=== PATIENT | female | born 1940 | race Caucasian/White ===

== ENCOUNTER 2019-02-24 06:23 | Inpatient (IN) | payer OTHER, BC ==
[2019-02-24] VITALS (18 sets, daily range): BP systolic 112–157; BP diastolic 43–83
[~2019-02-24] VITALS: Ht 175.3 cm; Wt 103.4 kg
[~2019-02-24 06:23] MED LIST: ASMANEX220 MC2 IH; ASPIRIN325 PO; ATACAND32 MG PO; FOLIC ACID1 MG PO; HYDROCODONE-APA1 TA1 PO; KEFLEX500 MG PO; LIPOFEN150 MG PO; OMEGA-31000 M1 PO; PROCARDIA XL90 MG PO; TOPROL XL25 MG PO; ZOFRAN ODT4 MG DISSOLVE; [UNRECOGNIZED DRUG - OTHER] PO
[2019-02-24 07:13] LABS: ABSOLUTE NEUTROPHILS 4.1 thou/uL (1.4-8.2); BASOPHILS 0.3 % (0.0-2.0); EOSINOPHILS 4.9 % (0.0-3.0); HEMATOCRIT 40.6 % (37.0-47.0); HEMOGLOBIN 13.4 gm/dL (12.0-15.0); LYMPHOCYTES 35.4 % (24.0-44.0); MCH 28.4 pg (26.0-34.0); MCHC 33.1 g/dL (28.0-37.0); MCV 85.9 fL (80.0-100.0); MONOCYTES 7.5 % (1.0-8.0); PLATELET COUNT 226 thou/uL (150-400); POLYS 51.9 % (36.0-66.0); RBC 4.72 mil/uL (4.20-5.00)
[2019-02-24] MEDS ORDERED: ELIQUIS5 MG PO (07:16)
[2019-02-24] MEDS ORDERED: TRICOR145 MG PO (07:16)
[2019-02-24 07:19] LABS: CALCIUM 9.7 mg/dL (8.5-10.1); CREATININE 1.7 mg/dL (0.6-1.0); POTASSIUM 4.3 mmol/L (3.5-5.1)
[2019-02-24 07:25] LABS: ALBUMIN 3.9 g/dL (3.4-5.0); TOTAL BILIRUBIN 0.5 mg/dL (<0.1-1.0); TOTAL PROTEIN 7.1 g/dL (6.4-8.2)
[2019-02-24 07:27] LABS: APTT 25.7 Seconds (24.5-32.8); PROTIME 10.8 Seconds (9.3-11.4)
[2019-02-24 16:04] LABS: ABSOLUTE NEUTROPHILS 11.2 thou/uL (1.4-8.2); BASOPHILS 0.3 % (0.0-2.0); EOSINOPHILS 0.1 % (0.0-3.0); HEMATOCRIT 33.3 % (37.0-47.0); LYMPHOCYTES 5.9 % (24.0-44.0); MCH 28.3 pg (26.0-34.0); MCV 85.9 fL (80.0-100.0); MONOCYTES 1.7 % (1.0-8.0); PLATELET COUNT 201 thou/uL (150-400); RBC 3.87 mil/uL (4.20-5.00); RDW 14.1 % (10.5-14.5); WBC 12.1 thou/uL (4.0-11.0)
--- NOTE | 2019-02-24 19:26 | NUR ---
PT ADMITED FROM CARDIAC CATH. ADMISSION HX AND ASSESSMENT COMPLETED. RECEIVED PRN PAIN MED WITH PARTIAL RELIEF. BRUIZES NOTED ON THE RIGHT GROIN INCISION. NO HEMATOMA. NO CARDIAC DISTRESS NOTED. WILL CONTINUE TO MONITOR.
--- NOTE | 2019-02-25 03:27 | NUR ---
ASSUMED PT CARE AT 1900. PT ON BEDREST, POST CATH PROCEDURE. VITAL SIGNS STABLE, ASSESSMENT CHARTED. NO CMPLAINT OF PAIN. PT OFF BEDREST AT ABOUT 2030. MERA CATHETER DISCONTINUED. PT ASSISTED TO THE SIDE OF BED AND TO BEDSIDE COMMODE. PT MILDLY DIZZY AT START. DIZZINESS RESOLVED ON OWN. GROIN SITE CLEAN, DRY AND INTACT. SITE SOFT. NO FURTHER PROGRESSION WITH BRUISING. ICE PACK SEEMD TO RELIEF SORENESS/PAIN. RESTED WELL THROUGH THE NIGHT. PROGRESSING TOWARD PLAN OF CARE. WILL CONTINUE TO MONITOR.
[2019-02-25 04:42] VITALS: BP 112/43
[2019-02-25 05:29] LABS: CALCIUM 8.3 mg/dL (8.5-10.1); CREATININE 2.1 mg/dL (0.6-1.0); POTASSIUM 4.4 mmol/L (3.5-5.1)
[2019-02-25 05:35] LABS: ABSOLUTE NEUTROPHILS 6.5 thou/uL (1.4-8.2); BASOPHILS 0.4 % (0.0-2.0); EOSINOPHILS 0.2 % (0.0-3.0); HEMATOCRIT 27.5 % (37.0-47.0); HEMOGLOBIN 9.1 gm/dL (12.0-15.0); LYMPHOCYTES 18.7 % (24.0-44.0); MCH 28.6 pg (26.0-34.0); MCHC 33.3 g/dL (28.0-37.0); MCV 86.1 fL (80.0-100.0); MONOCYTES 9.2 % (1.0-8.0); PLATELET COUNT 187 thou/uL (150-400); POLYS 71.5 % (36.0-66.0); RBC 3.19 mil/uL (4.20-5.00); WBC 9.1 thou/uL (4.0-11.0)
[2019-02-25 07:45] VITALS: BP 95/46
--- NOTE | 2019-02-25 08:29 | EKG ---
[address] [address] ELECTROCARDIOGRAM REPORT Name: APRYLGEORGETTE EMANUELTH Room #: 207-P [facility]#: [id number] Admission: 02/24/19 Attend Phys: Phillip Carrillo MD Discharge: Date of : 42 Report #: [id number] THIS REPORT FOR: //name// [facility] Test Date: 2019-02-24 Test Time: 07:16:52 Pat Name: GEORGETTE PINK Department: Room: [facility] Gender: F Music Library Assistant: Brook JUARES : 1940 Requested By: Phillip Carrillo Order Number: [id number] MD: Phillip Carrillo Measurements Intervals [place] Rate: 79 P: OR: QRS: 21 QRSD: 95 T: 15 QT: 367 QTc: 421 Interpretive Statements Atrial fibrillation No previous ECG available for comparison Electronically Signed On 02-25-2019 8:29:04 CDT by Phillip Carrillo [email or web address] <ELECTRONICALLY SIGNED> By: Phillip Carrillo MD 02/25/19 0829 0716 5 Phillip Carrillo MD /HAWA
[2019-02-25 11:30] VITALS: BP 109/43
--- NOTE | 2019-02-25 15:13 | NUR ---
PT ALERT AND ORIENTED. HAD LOW BP THIS AM. CARDIOLOGY AWARE. ORDERS NOTED. REPORT HAVING SOME LEG CRAMPS. WARM BLANKET APPLIED. PT REPORT SOME RELIEF. EVALUATED BY PT AND OT. NO HEMATOMA NOTED ON THE RIGHT GROIN. STILL BRUISED. NO CARDIAC OR RESPIRATORY DISTRESS NOTED. WILL CONTINUE TO MONITOR.
[2019-02-25 15:25] VITALS: BP 119/45
--- NOTE | 2019-02-25 17:55 | NUR ---
Case opened to screen for dc planning needs. PT/OT charlene noted and case discussed with the care team. Cm role introduced to pt at bedside. She is a&ox4 and reports that she is very indep and active. She drives and does all of her own house work and yard work. She has a cane, a rolator walker and a std walker if needed at dc. She has 5 steps to enter her home and a stair glide to the basement. She her brother lives out of town but she has friends from [employer] that she relies on if needed. She is anxious to dc home as she has a cat that needs feed/watered. She reports that she has a pcp and regular f/u care. She has not had hh and does not feel she needs it at this time. She reports having issues with balance for many year and that she is used to it. Will ask therapy to revisit with her tomorrow. She is not receptive to a hh referral at this time. She has a friend that can pick her up if dc'd tomorrow.
[2019-02-26 04:02] VITALS: BP 99/40
--- NOTE | 2019-02-26 05:25 | NUR ---
ASSUMED PT CARE AT 1900. PT A/OX4, VITAL SIGNS STABLE, ASSESSMENT CHARTED. BACK PAIN RELIEF ACHIEVED WITH REPOSITIONING. PT SLEPT IN RECLINER THROUGH THE NIGHT. GROIN SITE REMAINED UNCHANGED. PROGRESSING TOWARD PLAN OF CARE. WILL CONTINUE TO MONITOR.
[2019-02-26 05:27] LABS: ALBUMIN 2.7 g/dL (3.4-5.0); CALCIUM 7.6 mg/dL (8.5-10.1); CREATININE 2.9 mg/dL (0.6-1.0); POTASSIUM 4.4 mmol/L (3.5-5.1); TOTAL BILIRUBIN 0.5 mg/dL (<0.1-1.0); TOTAL PROTEIN 4.9 g/dL (6.4-8.2)
[2019-02-26 05:58] LABS: ABSOLUTE NEUTROPHILS 4.9 thou/uL (1.4-8.2); BASOPHILS 0.6 % (0.0-2.0); EOSINOPHILS 2.8 % (0.0-3.0); HEMATOCRIT 23.9 % (37.0-47.0); HEMOGLOBIN 8.1 gm/dL (12.0-15.0); MCHC 33.7 g/dL (28.0-37.0); MONOCYTES 9.3 % (1.0-8.0); PLATELET COUNT 158 thou/uL (150-400); POLYS 56.3 % (36.0-66.0); RBC 2.78 mil/uL (4.20-5.00); RDW 13.9 % (10.5-14.5); WBC 8.7 thou/uL (4.0-11.0)
[2019-02-26 07:20] VITALS: BP 115/46
[2019-02-26 11:35] VITALS: BP 114/45
[2019-02-26 15:50] VITALS: BP 111/43
--- NOTE | 2019-02-26 18:42 | NUR ---
[facility] PT A&O X4. ASSESSMENT CHARTED. FALL PRECAUTIONS IN PLACE. PT DENIES ANY ACUTE GENERALIZED BODY PAIN. PT STATED SHE HAD MILD CHRONIC BACK PAIN. PT REFUSED ANALGESICS. PT'S VITAL SIGNS STABLE. PT ABULATES WITH ASSIST X1. PT IS STEADY WHEN WALKING. PT ADDED SUPPLEMENT TO DIET. ENCOURAGING PT TO DRINK FLUIDS AND EAT. PT RECIEIVED BLADDER SCAN. PT WAS RETAINING FLUID. PT RECIEVED A STRAIGHT CATH. ORDERED FLOMAX FOR TONIGHT. PT'S RESIDUAL ON BLADDER SCAN WAS 429. PT'S OUTPUT IN CATH WAS 175. PT'S IV FLUIDS HAVE BEEN OFF AND ON DUE TO INFLILTRATED IV AND PT GOING TO AND FROM BATHROOM. PT HAS UNMEASURED VOIDS DUE TO HAT MISPLACEMENT. PT REPORTED SHE HAD CHEST PRESSURE. OPERATIONAL COMMUNICATION CHIEF NOTIFIED AND AWAITING ORDERS.
[2019-02-26 21:42] VITALS: BP 97/41
--- NOTE | 2019-02-27 03:28 | NUR ---
ASSUMED PT CARE AT 1900. PT A/OX4, VITAL SIGNS STABLE, SOFT BLOOD PRESSURES, FLUIDS MAINTAINED. ASSESSMENT CHARTED. LOWER BACK PAIN ADEQUATELY MANAGED WITH PAIN MEDICATION. PT SLEPT IN RECLINER FOR MOST OF THE NIGHT.RESTED WELL THROUGH THE NIGHT. PROGRESSING TOWARD PLAN OF CARE. WILL CONTINUE TO MONITOR.
[2019-02-27 05:35] LABS: BASOPHILS 0.6 % (0.0-2.0); EOSINOPHILS 3.4 % (0.0-3.0); HEMATOCRIT 21.7 % (37.0-47.0); HEMOGLOBIN 7.4 gm/dL (12.0-15.0); LYMPHOCYTES 30.5 % (24.0-44.0); MCH 29.1 pg (26.0-34.0); MCHC 33.9 g/dL (28.0-37.0); MCV 85.8 fL (80.0-100.0); MONOCYTES 10.7 % (1.0-8.0); PLATELET COUNT 146 thou/uL (150-400); POLYS 54.8 % (36.0-66.0); RBC 2.53 mil/uL (4.20-5.00); RDW 13.4 % (10.5-14.5); WBC 7.2 thou/uL (4.0-11.0)
[2019-02-27 05:46] LABS: CREATININE 2.2 mg/dL (0.6-1.0); POTASSIUM 4.3 mmol/L (3.5-5.1)
[2019-02-27 06:14] VITALS: BP 104/40
[2019-02-27 08:05] VITALS: BP 112/42
[2019-02-27 12:05] VITALS: BP 111/47
[2019-02-27 16:15] VITALS: BP 101/34
--- NOTE | 2019-02-27 16:33 | NUR ---
ASSUMMED PT CARE AT [facility] 0700. PT A&O X4. ASSESSMENT CHARTED. FALL PRECAUTIONS IN PLACE. VITAL SIGNS STABLE. PT STATED SHE HAS HAD ZERO PAIN. ENCOURAGED PT TO DRINK FLUIDS AND EAT MEALS. PT HAD A BM. PT'S URINARY CATHEDER DC WITH NO COMPLICATIONS. PT HAS VOIDED MULTIPLE TIMES SINCE URINARY CATHEDER REMOVAL. PT DENIES PAIN OR COMPLICATIONS WHEN VOIDING. PT AMMBULATES WITH STANDBY ASSIST FOR IV PUMP BUT IS STEADY. PT'S BP DECREASED. SURGICAL AIDE NOTIFIED. AWAITING ORDERS AND CONTINUING TO MONITOR PT. PT IS ASYMPTOMATIC.
[2019-02-27 20:01] VITALS: BP 105/33
[2019-02-28] VITALS (8 sets, daily range): BP systolic 113–149; BP diastolic 36–61
[2019-02-28 05:22] LABS: ABSOLUTE NEUTROPHILS 2.9 thou/uL (1.4-8.2); BASOPHILS 0.8 % (0.0-2.0); EOSINOPHILS 6.2 % (0.0-3.0); HEMATOCRIT 20.7 % (37.0-47.0); LYMPHOCYTES 30.8 % (24.0-44.0); MCHC 33.7 g/dL (28.0-37.0); MCV 86.1 fL (80.0-100.0); MONOCYTES 10.4 % (1.0-8.0); PLATELET COUNT 141 thou/uL (150-400); POLYS 51.8 % (36.0-66.0); RBC 2.41 mil/uL (4.20-5.00); RDW 13.8 % (10.5-14.5); WBC 5.6 thou/uL (4.0-11.0)
[2019-02-28 05:39] LABS: ALBUMIN 2.5 g/dL (3.4-5.0); CALCIUM 8.1 mg/dL (8.5-10.1); CREATININE 1.7 mg/dL (0.6-1.0); PHOSPHORUS 2.6 mg/dL (2.5-4.9); POTASSIUM 4.5 mmol/L (3.5-5.1)
--- NOTE | 2019-02-28 06:01 | NUR ---
ASSUMED PT CARE AT 1900 WITH NO SIGN OF DISTRESS NOTED IN PT. PT IS ALERT AND ORIENTED. PT IS SITTING IN CHAIR. NO SIGN OF DISTRESS NOTED IN PT. FALL PRECAUTION IN PLACE. BLOOD PRESSURE NOTED TO BE LOW. ASSESSMENT COMPLETED AND CHARTED. SCHEDULED MEDS ADMINISTERED TO PT. PT TOLERATED MED INTAKE. CONTINUE TO MONITOR PATIENT.
[2019-02-28 13:56] LABS: HEMATOCRIT 24.4 % (37.0-47.0); HEMOGLOBIN 8.1 gm/dL (12.0-15.0)
--- NOTE | 2019-02-28 16:10 | NUR ---
PT CARE ASSUMED APPROX 0700. PT ALERT AND ORIENTED X4. DENIES PAIN AND SOA. VSS. AMBULATING IN HALLWAYS PER PHYSICIAN REQUEST. STEADY GAIT. PT RECEIVED BLOOD TRANSFUSION THIS SHIFT. 1UNIT IN WITHOUT ISSUE. SECOND UNIT TO BE TRANSFUSED PER PT REQUEST. HOSPITAL POLICY FOLLOWED FOR 2UNIT TRANSFUSION. IVF STOPPED PER DR ORDER. PT PO FLUID INTAKE ENCOURAGED. NO CHANGE NOTED TO RIGHT GROIN/HIP BRUISING. CT ABD/PELVIS DONE TO R/O BLEED. NEGATIVE FOR BLEED. WILL TRANFUSE SECOND UNIT TIMELY AND PER PROTOCOL. NO DISTRESS NOTED.
--- NOTE | 2019-02-28 17:45 | NUR ---
SECOND UNIT PRBC STARTED AND 15 MIN VS COMPLETED. VSS. PT DENIES ISSUES. UNIT WILL COMPLETE ON EDUCATOR SENIOR CLINICAL. AUDIT TOOL FOR 2ND UNIT INITIATED. NIGHT NURSE WILL BE AWARE TO COMPLETE.
[2019-03-01 04:27] LABS: ABSOLUTE NEUTROPHILS 3.4 thou/uL (1.4-8.2); BASOPHILS 0.7 % (0.0-2.0); EOSINOPHILS 6.9 % (0.0-3.0); HEMATOCRIT 26.5 % (37.0-47.0); HEMOGLOBIN 9.2 gm/dL (12.0-15.0); LYMPHOCYTES 27.2 % (24.0-44.0); MCH 30.1 pg (26.0-34.0); MCHC 34.5 g/dL (28.0-37.0); MONOCYTES 11.1 % (1.0-8.0); PLATELET COUNT 141 thou/uL (150-400); POLYS 54.1 % (36.0-66.0); RBC 3.05 mil/uL (4.20-5.00); RDW 14.3 % (10.5-14.5); WBC 6.3 thou/uL (4.0-11.0)
[2019-03-01 04:28] LABS: CALCIUM 8.6 mg/dL (8.5-10.1); CREATININE 1.6 mg/dL (0.6-1.0); POTASSIUM 4.6 mmol/L (3.5-5.1)
[2019-03-01 05:00] VITALS: BP 136/55
--- NOTE | 2019-03-01 05:09 | NUR ---
ASSUMED PT CARE AT 1900 WITH NO SIGN OF DISTRESS NOTED IN PT. PT IS ALERT AND ORIENTED. BLOOD TRANSFUSION COMPLETED. PT TOLERATED INFUSION. PT IS STABLE. FALL PRECAUTION IN PLACE. ASSESSMENT COMPLETED AND DOCUMENTED. SCHEDULED MEDS AMDINISTERED TO PT. PT TOLERATED PO INTAKE. PT IS STABLE ON THE HEART MONITOR. VITAL SIGNS STABLE. DENIES ANY FURTHER NEEDS AT THIS TIME. CONTINUE TO MONITOR.
[2019-03-01 08:27] VITALS: BP 137/48
[2019-03-01] MEDS ORDERED: IRON325 PO (11:08)
[2019-03-01] MEDS ORDERED: FLOMAX0.4 MG PO (11:08)
[2019-03-01 11:30] VITALS: BP 137/48
--- NOTE | 2019-03-01 12:34 | NUR ---
PT CARE ASSUMED APPROX 0700. PT ALERT AND ORIENTED X4. DENIED PAIN AND SOA. VSS. UP WITH STEADY GAIT. RIGHT GROIN/HIP BRUISING NOTED SAME FROM 02/28. RLE EXTREMITY APPEARED MORE SWOLLEN THIS SHIFT. DR PITTMAN WAS NOTIFIED THAT LEG IS MORE SWOLLEN. PT DISCHARGED AT THIS TIME HOME TO SELF CARE. PT DENIED QUESTIONS OR CONCERNS REGARDING POST HOSPITAL CARE AND ALL DISCHARGE EDUCATION DONE PRIOR TO LEAVING. IV OUT, TELE OFF. PT WAS ESCORTED OUT BY NURSING STAFF.
--- NOTE | 2019-03-01 22:12 | D ---
[facility] [place] [address] DISCHARGE SUMMARY Name: GEORGETTE PINK Room #: 207-P [facility] IN M.R.#: [id number] Admission: 02/25/19 Attend Phys: Phillip Carrillo MD Discharge: 03/01/19 Date of : 42 Report #: [id number] THIS REPORT FOR: //name// CC: Fernando Carrillo DATE OF SERVICE: 03/01/2019 ADMITTING DIAGNOSIS: Paroxysmal symptomatic atrial fibrillation. DISCHARGE DIAGNOSES: Paroxysmal symptomatic atrial fibrillation. PROCEDURE PERFORMED: Atrial fibrillation. DISCHARGE MEDICATIONS: 1. Nifedipine, asthma. 2. Toprol-XL 3. [place], 4. Zofran. FOLLOWUP: 1. Dr. Carrillo in [address] Carrillo's nurse in 7 days. BRIEF CLINICAL HISTORY: Please see history and physical in chart. HOSPITAL COURSE: The patient was admitted to the hospital and underwent atrial fibrillation. She developed a significant hematoma. CT scan failed to demonstrate a retroperitoneal bleed, but there was significant anemia developed. Renal function then deteriorated and Nephrology was consulted for assessment and evaluation, hydration demonstrated a drop in hemoglobin to 7 grams at which point in time, 2 units of blood were transfused. The patient feels much better after the 2 units with hemoglobin of greater than 9. She still has some tenderness in the puncture site, but has remained with stable hemoglobin. In view of this, she is being discharged to home in stable and improved condition to follow up with previously stated discharge instructions and medications. <ELECTRONICALLY SIGNED> By: Cornelius Radford MD 03/01/19 2212 1105 1120 Cornelius Radford MD /nt
--- NOTE | 2019-03-02 07:54 | EKG ---
[address] [place] [address] ELECTROCARDIOGRAM REPORT Name: GEORGETTE PINK Room #: 207-[facility] IN M.R.#: [id number] Admission: 02/25/19 Attend Phys: Phillip Carrillo MD Discharge: 03/01/19 Date of : 42 Report #: [id number] THIS REPORT FOR: //name// [facility] Test Date: 2019-02-26 Test Time: 19:33:45 Pat Name: GEORGETTE PINK Department: Room: [facility] Gender: F Maintenance Man: Calixto GONZALEZ : 1940 Requested By: Lauren Khan Order Number: [id number] MD: Willie Washburn Measurements Intervals [place] Rate: 70 P: 77 HI: 194 QRS: 28 QRSD: 95 T: 36 QT: 386 QTc: 417 Interpretive Statements Sinus rhythm No significant abnormality Compared to ECG 02/24/2019 07:16:52 Atrial fibrillation no longer present Electronically Signed On 03-02-2019 7:54:19 CDT by Willie Washburn [email or web address] <ELECTRONICALLY SIGNED> By: Willie Washburn MD, [facility] 03/02/19 0754 32 32 Willie Washburn MD, [facility] /EPI
--- NOTE | 2019-03-02 09:22 | HC ---
[facility] [place] [address] CONSULTATION Name: GEORGETTE PINK Room #: 207-P [facility] IN M.R.#: [id number] Admission: 02/25/19 Attend Phys: Phillip Carrillo MD Discharge: 03/01/19 Date of : 42 Report #: [id number] THIS REPORT FOR: //name// CC: Fernando Carrillo REASON FOR PRESENTATION: Post AFib ablation with isolation of the pulmonary vein. REASON FOR CONSULTATION: Elevated creatinine. HISTORY OF PRESENT ILLNESS: This is a 78-year-old with extensive past medical history including and not limiting to hypertension, AFib. She is known to have chronic kidney disease with a baseline creatinine of around 1.6. She follows with [facility]. Her chronic kidney disease was attributed to hypertension. She presented on the 02/24/2019 for an AFib ablation and isolation of the pulmonary vein. This was successfully done. Post-procedure, creatinine had risen to 2.1 and this has gone up to 2.9. I am being consulted to manage her acute kidney injury. PAST MEDICAL HISTORY: 1. Hypertension. 2. AFib. 3. Numerous surgical procedures related to her numerous orthopedic issues. MEDICATIONS: 1. Eliquis. 2. Fenofibrate. 3. Normal saline. 4. Zofran. 5. Candesartan as an outpatient. FAMILY HISTORY: Significant for hypertension. REVIEW OF SYSTEMS: GENERAL: No fever or chills. CARDIOVASCULAR: No chest pain or palpitation. PULMONARY: No cough or hemoptysis. GASTROINTESTINAL: No nausea or vomiting. GENITOURINARY: She had some issues with urinary retentions. MUSCULOSKELETAL: Occasional back pain. HEMATOLOGICAL: Post-procedural bleeding from the groin area. PHYSICAL EXAMINATION: GENERAL: She is alert, oriented, in no apparent distress. Temperature is 37.2, blood pressure is 114/45, respiratory rate is 18. [facility] [address] [place] [address] CONSULTATION Name: GEORGETTE PINK Room #: 207-P [facility] IN [facility].#: [id number] Admission: 02/25/19 Attend Phys: Phillip Carrillo MD Discharge: 03/01/19 Date of : 42 Report #: [id number] HEAD AND NECK: No jugular venous distention. CHEST: Clear to auscultation bilaterally. CARDIOVASCULAR: No rub detected. ABDOMEN: Soft, nontender with no hepatosplenomegaly. LOWER EXTREMITIES: No edema with intact peripheral pulses. LABORATORY VALUES: Reviewed. Hemoglobin is down to 8, creatinine is 2.9. IMPRESSION AND PLAN: 1. Acute kidney injury. 2. Chronic kidney disease with a baseline creatinine of around 1.7. 3. Post ablation for atrial fibrillation. 4. Hypertension. 5. Unclear source that will need to be investigated, likely related to some hemodynamic changes during the procedure, complicated by hypotension post-procedure leading to acute kidney injury. 6. As for now, I agree with the current assessment, management and plan by the primary team including IV fluid. 7. Continue to hold angiotensin converting enzyme inhibitor. 8. Watch hemoglobin. 9. Continue to monitor electrolytes and urine output. <ELECTRONICALLY SIGNED> By: Karlie George MD 03/02/19 0922 1409 2320 Karlie George MD /nt
--- NOTE | 2019-03-05 14:23 | P ---
[facility] [place] [address] PROCEDURE REPORT Name: APRYLGEORGETTE MARLEY Room #: 207-P [facility] IN M.R.#: [id number] Admission: 02/25/19 Attend Phys: Phillip Carrillo MD Discharge: 03/01/19 Date of : 42 Report #: [id number] THIS REPORT FOR: //name// CC: Fernando Carrillo PREOPERATIVE DIAGNOSIS: Atrial fibrillation. POSTOPERATIVE DIAGNOSIS: Atrial fibrillation. PROCEDURES PERFORMED: 1. Atrial fibrillation ablation, CPT code 73352. 2. 3D mapping, CPT code 05026. 3. Intracardiac echo, CPT code 33000. HISTORY: The patient is a 78-year-old female with a history of recurrent atrial fibrillation as well as sick sinus syndrome, here for AFib ablation. ANESTHESIA: The patient underwent general anesthesia with no anesthesia related complications. DESCRIPTION OF PROCEDURE: The patient underwent informed consent. We discussed the details of the procedure including the risks, which include but not limited to bleeding, vascular damage, cardiac perforation as well as stroke or [place]. She understood these risks and willing to proceed. The patient was brought to the EP laboratory in a fasting and sedated state, prepped and draped in a sterile fashion. I obtained access to the right femoral vein x 3 and placed sheaths using the modified Seldinger technique. In the right femoral vein, I placed an 8, 9 and 7-Croatian short sheath. Next, I placed a decapolar catheter easily in the coronary sinus and an ice catheter into the right atrium and I created a detailed 3D geometry of the left atrium using [employer] and then merged this with the cardiac CT scan. Next, I systemically heparinized the patient and performed a transseptal using an SL1 sheath and a Nelson needle. Of note, I had to perform my transseptal at a very anterior location as this was the thinness region, but when I tried to advance my SL1 sheath into the left atrium, it would not advance. My wire was in the left superior pulmonary vein. I therefore removed the SL1 sheath and advanced the ramp sheath up and was able to cross with this into the left atrium. Using the Biosense Heck Lasso catheter, 3D geometry of the left atrium was created and then I exchanged for the cryoballoon. I performed two 4-minute freezes in the left superior pulmonary vein, which did not result in isolation. I therefore directed my balloon to a more superior location to take care of a roof leak. During this third freeze, I isolated the vein within 60 seconds and I performed a freeze of 4 minutes' duration. I then turned my attention to the left inferior pulmonary vein. This vein appeared to be electrically silent. I [facility] [address] [place] [address] PROCEDURE REPORT Name: GEORGETTE PINK Room #: 207-P [facility] IN M.R.#: [id number] Admission: 02/25/19 Attend Phys: Phillip Carrillo MD Discharge: 03/01/19 Date of : 42 Report #: [id number] decided to perform a single 4-minute freeze in this vein. I then turned my attention to the right superior pulmonary vein. During my right-sided vein freezes, I performed phrenic nerve pacing using my decapolar catheter placed in the subclavian position. I performed two 4-minute freezes followed by a 2-minute freeze and then the vein appeared to be isolated. I could not actually see isolation during the freeze. I then turned my attention to the right inferior pulmonary vein and performed a 4-minute followed by a 3-minute freeze. Again, this vein appeared to be isolated at this time. A cardioversion was performed at 200 joules, which resulted in sinus bradycardia in the 40s. I therefore removed my cryo balloon and I performed a 3D voltage map of the left atrium, which showed that everything was isolated except the right superior pulmonary vein. I performed another 4-minute freeze with the vein remained connected and therefore, I performed an additional 3-minute freeze and during this freeze, there was evidence of isolation of the vein. Post-ablation, the patient was in sinus rhythm with a sinus cycle length of 1300 milliseconds, ID interval 235 milliseconds, QRS duration 85 milliseconds, QT interval 430 milliseconds. As such, all catheters and sheaths were pulled after the patient received systemic protamine. While we were pulling the sheath, the patient did develop a hematoma. I tried to perform a mhdtfa-ib-xydrw suture while we were pulling sheaths, but there appeared to be significant bleeding. Therefore, manual pressure was held for approximately 20-30 minutes. However, the patient remained hemodynamically intact throughout the procedure. CONCLUSIONS: 1. Successful AFib ablation with isolation of the 4 pulmonary veins. 2. Evidence of sick sinus syndrome post-cardioversion with heart rates in the 40s. PLAN: The patient will be monitored in the CCU overnight. We will monitor her slow rates, but will not initiate antiarrhythmic drugs due to her underlying sinus bradycardia. We will monitor her hematoma and recheck CBC tonight and tomorrow. <ELECTRONICALLY SIGNED> By: Phillip Carrillo MD 03/05/19 1423 1218 0019 Phillip Carrillo MD /nt
[2019-03-30] MEDS ORDERED: MULTAQ 400 MG400 MG PO (07:35)
== END 2019-03-01 12:24 | disposition home or self-care (01) | DRG 274 ==
LOC: CATH 06:23 → 2N 12:56 → CATH 14:40 → 2N 02-25 10:56
PROVIDERS: Hospitalist; Internal Medicine; Nurse Practitioner; ADMIT Internal Medicine Cardiovascular Disease
PROC: 02583ZZ Destruction of Conduction Mechanism, Percutaneous Approach (ICD-10-PCS; principal; 2019-02-24)
PROC: 30233N1 Transfusion of Nonautologous Red Blood Cells into Peripheral Vein, Percutaneous Approach (ICD-10-PCS; 2019-02-28)
DX: I48.0 Paroxysmal atrial fibrillation (principal); N17.9 Acute kidney failure, unspecified; D62 Acute posthemorrhagic anemia; I97.418 Intraoperative hemorrhage and hematoma of a circulatory system organ or structure complicating other circulatory system procedure; I49.5 Sick sinus syndrome; G47.33 Obstructive sleep apnea (adult) (pediatric); I95.9 Hypotension, unspecified; I12.9 Hypertensive chronic kidney disease with stage 1 through stage 4 chronic kidney disease, or unspecified chronic kidney disease; N18.9 Chronic kidney disease, unspecified; Z82.49 Family history of ischemic heart disease and other diseases of the circulatory system; Z79.899 Other long term (current) drug therapy; Z79.01 Long term (current) use of anticoagulants; Y83.8 Other surgical procedures as the cause of abnormal reaction of the patient, or of later complication, without mention of misadventure at the time of the procedure; Y92.234 Operating room of hospital as the place of occurrence of the external cause
CPT/HCPCS: 10081; 62110; 62900; 65020; 65040; 70005

== ENCOUNTER → 2019-03-10 | Outpatient (CLI) | payer OTHER, BC ==
[~2019-03-10] MED LIST changes: +ELIQUIS5 MG PO; +FLOMAX0.4 MG PO; +IRON325 PO; +TRICOR145 MG PO
--- NOTE | 2019-03-10 10:32 | NUR ---
0900-PT BROUGHT OVER FROM ULTRASOUND AFTER INJECTION OF PSEUDO BY . MONITORING PT FOR 4 HOURS AND THEN US WILL REASSESS RIGHT GROIN. VSS, PT C/O BEING UNCOMFORTABLE LAYING ON HER BACK AND RIGHT INNER LEG HURTING. OFFERED PAIN MEDICATION AND PT REFUSED. PLACED ICE PACK ON RIGHT INNER LEG TO HELP WITH BRUISING/PAIN. RIGHT GROIN C/D/I.
--- NOTE | 2019-03-11 08:48 | EKG ---
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: RAIZA : 1940 Requested By: Phillip Carrillo Order Number: [id number] MD: Willie Washburn Measurements Intervals [place] Rate: 58 P: 0 MD: 200 QRS: 36 QRSD: 98 T: 38 QT: 449 QTc: 442 Interpretive Statements Sinus bradycardia Otherwise no significant abnormality Compared to ECG 02/26/2019 19:33:45 No significant changes Electronically Signed On 03-11-2019 8:47:48 CDT by Willie Washburn [email or web address] ��������������������������������������������� <ELECTRONICALLY SIGNED> ���������������������������������������� By: Willie Washburn MD, [facility] ��������������������������������������������� 03/11/19 0847 1320 1320 Willie Washburn MD, [facility] /EPI
== END | disposition home or self-care (01) ==
LOC: ULTRA 07:18
DX: I72.4 Aneurysm of artery of lower extremity (principal); I48.0 Paroxysmal atrial fibrillation; Z88.8 Allergy status to other drugs, medicaments and biological substances; Z79.01 Long term (current) use of anticoagulants; Z79.899 Other long term (current) drug therapy

== ENCOUNTER → 2019-03-30 | Outpatient (CLI) | payer OTHER, BC ==
[~2019-03-30] VITALS: Ht 177.8 cm; Wt 106.1 kg
[~2019-03-30] MED LIST changes: +MULTAQ 400 MG400 MG PO
[2019-03-30 07:28] VITALS: BP 170/98
[2019-03-30 07:54] LABS: HEMATOCRIT 37.8 % (37.0-47.0); MCH 28.5 pg (26.0-34.0); MCHC 31.9 g/dL (28.0-37.0); MCV 89.4 fL (80.0-100.0); RBC 4.23 mil/uL (4.20-5.00); RDW 14.1 % (10.5-14.5); WBC 7.4 thou/uL (4.0-11.0)
[2019-03-30 08:02] LABS: CALCIUM 9.3 mg/dL (8.5-10.1); CREATININE 1.6 mg/dL (0.6-1.0); POTASSIUM 3.8 mmol/L (3.5-5.1)
[2019-03-30 08:03] LABS: APTT 29.4 Seconds (24.5-32.8); INR 1.1
[2019-03-30 08:09] LABS: ALBUMIN 3.7 g/dL (3.4-5.0); TOTAL BILIRUBIN 0.5 mg/dL (<0.1-1.0); TOTAL PROTEIN 6.7 g/dL (6.4-8.2)
--- NOTE | 2019-03-30 08:53 | NUR ---
PT HOME WITH FRIEND POST CARDIOVERSION X1 SHOCK AT 200J. PT UP WITH STEADY GAIT. HR 50-54. SB. PLEASANT AFFECT. NO C/O. SL DC'D.
--- NOTE | 2019-04-06 15:56 | P ---
[facility] [place] [address] PROCEDURE REPORT Name: GEORGETTE PINK AYAKA Room #: REG CYNTHIAJuan Diego Henao#: [id number] Admission: 03/30/19 Attend Phys: Phillip Carrlilo MD Discharge: Date of : 42 Report #: [id number] THIS REPORT FOR: //name// CC: Debbie Carrillo DATE OF SERVICE: 03/31/2019 PREOPERATIVE DIAGNOSIS: Atrial fibrillation. POSTOPERATIVE DIAGNOSIS: Atrial fibrillation HISTORY: The patient is a 78-year-old female with recurrent AFib, status post recent AFib ablation. She has been loaded with Multaq therapy and is here for cardioversion. DESCRIPTION OF PROCEDURE: The patient underwent informed consent. She was prepped in the standard fashion. She was then sedated by the Anesthesiology service. Once sedated, she underwent a 200 joule synchronized cardioversion with yarsanism of sinus rhythm. There were no procedure related complications. CONCLUSIONS: Successful DC cardioversion with yarsanism of sinus rhythm. <ELECTRONICALLY SIGNED> By: Phillip Carrillo MD 04/06/19 1556 0930 0034 Phillip Carrillo MD /nt
== END | disposition home or self-care (01) ==
LOC: CATH 06:34
PROVIDERS: Internal Medicine Cardiovascular Disease
DX: I48.91 Unspecified atrial fibrillation (principal); I42.9 Cardiomyopathy, unspecified; I12.9 Hypertensive chronic kidney disease with stage 1 through stage 4 chronic kidney disease, or unspecified chronic kidney disease; E11.22 Type 2 diabetes mellitus with diabetic chronic kidney disease; N18.9 Chronic kidney disease, unspecified; E78.5 Hyperlipidemia, unspecified; J45.909 Unspecified asthma, uncomplicated; K21.9 Gastro-esophageal reflux disease without esophagitis; Z79.01 Long term (current) use of anticoagulants; Z79.899 Other long term (current) drug therapy; Z98.890 Other specified postprocedural states; Z96.653 Presence of artificial knee joint, bilateral; Z88.8 Allergy status to other drugs, medicaments and biological substances
CPT/HCPCS: 62110; 62900

== ENCOUNTER → 2020-12-20 | Outpatient (CLI) | payer OTHER, BC | LOC: SJCVCIMAG 10:01 | PROVIDERS: ATTEND Internal Medicine Infectious Disease | DX: R94.31 Abnormal electrocardiogram [ECG] [EKG] (principal); I08.1 Rheumatic disorders of both mitral and tricuspid valves; I48.0 Paroxysmal atrial fibrillation; E11.22 Type 2 diabetes mellitus with diabetic chronic kidney disease; I12.9 Hypertensive chronic kidney disease with stage 1 through stage 4 chronic kidney disease, or unspecified chronic kidney disease; N18.30 Chronic kidney disease, stage 3 unspecified; D63.1 Anemia in chronic kidney disease; E11.36 Type 2 diabetes mellitus with diabetic cataract; H26.9 Unspecified cataract; E66.9 Obesity, unspecified; R00.1 Bradycardia, unspecified; G47.33 Obstructive sleep apnea (adult) (pediatric); E11.40 Type 2 diabetes mellitus with diabetic neuropathy, unspecified; G47.30 Sleep apnea, unspecified; E78.5 Hyperlipidemia, unspecified; Z88.1 Allergy status to other antibiotic agents; Z88.2 Allergy status to sulfonamides; Z88.8 Allergy status to other drugs, medicaments and biological substances; Z79.899 Other long term (current) drug therapy; Z86.010 Personal history of colon polyps ==

== ENCOUNTER → 2021-07-12 | Outpatient (CLI) | payer OTHER, BC | LOC: SJCVC 13:59 | PROVIDERS: ATTEND Internal Medicine Cardiovascular Disease | DX: R94.31 Abnormal electrocardiogram [ECG] [EKG] (principal); I48.0 Paroxysmal atrial fibrillation; I10 Essential (primary) hypertension; I49.5 Sick sinus syndrome; G47.33 Obstructive sleep apnea (adult) (pediatric); J45.909 Unspecified asthma, uncomplicated; Z88.1 Allergy status to other antibiotic agents; Z88.2 Allergy status to sulfonamides; Z88.8 Allergy status to other drugs, medicaments and biological substances; Z79.899 Other long term (current) drug therapy ==

== ENCOUNTER → 2021-07-26 | Outpatient (CLI) | payer OTHER, BC ==
[~2021-07-26] VITALS: Ht 175.3 cm; Wt 110.0 kg
[~2021-07-26] MED LIST changes: +CANDESARTAN CIL16 MG; +MULTAQ 400 MG400 MG; +PROCARDIA XL30 MG
[2021-07-26 10:16] VITALS: BP 159/89
[2021-07-26 11:28] LABS: ABSOLUTE NEUTROPHILS 5.9 thou/uL (1.4-8.2); BASOPHILS 0.6 % (0.0-2.0); EOSINOPHILS 2.1 % (0.0-3.0); HEMATOCRIT 39.5 % (37.0-47.0); HEMOGLOBIN 12.9 gm/dL (12.0-15.0); LYMPHOCYTES 19.1 % (24.0-44.0); MCH 28.3 pg (26.0-34.0); MCHC 32.8 g/dL (28.0-37.0); MCV 86.5 fL (80.0-100.0); MONOCYTES 6.8 % (1.0-8.0); PLATELET COUNT 206 thou/uL (150-400); POLYS 71.4 % (36.0-66.0); RBC 4.57 mil/uL (4.20-5.00); RDW 13.7 % (10.5-14.5); WBC 8.3 thou/uL (4.0-11.0)
[2021-07-26 11:51] LABS: CALCIUM 9.4 mg/dL (8.5-10.1); CREATININE 1.7 mg/dL (0.6-1.0)
--- NOTE | 2021-07-26 12:31 | EKG ---
[address] [address] ELECTROCARDIOGRAM REPORT Name: APRYLGEORGETTE [id number] Admission: 07/26/21 Attend Phys: Phillip Carrillo MD Discharge: Date of : 42 Report #: [id number] 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[facility] 1940 Requested By: Phillip Carrillo Order Number: [id number] MD: Logan Garber Measurements Intervals [place] Rate: 84 P: -41 UT: 274 QRS: -2 QRSD: 133 T: QT: 379 QTc: 449 Interpretive Statements Sinus rhythm Prolonged UT interval Nonspecific intraventricular conduction delay Borderline repolarization abnormality Minimal ST elevation, anterior leads Compared to ECG 03/10/2019 13:20:31 First degree AV block now present Intraventricular conduction delay now present ST (T wave) deviation now present Sinus bradycardia no longer present Electronically Signed On 07-26-2021 12:31:17 GROCERY CLERK MARKING by Logan Garber [email or web address] <ELECTRONICALLY SIGNED> By: Logan Garber MD, [facility] 07/26/21 1231 1139 1139 Logan Garber MD, [facility] /EPI
--- NOTE | 2021-07-30 08:24 | P ---
[facility] [place] [address] PROCEDURE REPORT Name: APRYLGEORGETTE MARLEY Room #: REG JOHN [facility].#: [id number] Admission: 07/26/21 Attend Phys: Phillip Carrillo MD Discharge: Date of : 42 Report #: [id number] THIS REPORT FOR: cc: Debbie Sanz MD, Katrina MD Couchonnal, Luis F. MD ~ DATE OF SERVICE: 07/26/2021 CARDIOVERSION PREOPERATIVE DIAGNOSIS: Atrial fibrillation. POSTOPERATIVE DIAGNOSIS: Atrial fibrillation. DESCRIPTION OF PROCEDURE: The patient underwent informed consent. She was prepped and draped in a standard fashion. She was sedated by the Anesthesiology Service and once sedated, underwent a 200 joule synchronized cardioversion with hoahaoism of sinus rhythm. There were no procedure related complications. CONCLUSION: Successful DC cardioversion with hoahaoism of sinus rhythm. <ELECTRONICALLY SIGNED> By: Phillip Carrillo MD 07/30/21 0824 0808 27 Phillip Carrillo MD /nt
== END | disposition home or self-care (01) ==
LOC: CATH 07-24 07:58
PROVIDERS: ATTEND Internal Medicine Cardiovascular Disease
DX: I48.91 Unspecified atrial fibrillation (principal); I12.9 Hypertensive chronic kidney disease with stage 1 through stage 4 chronic kidney disease, or unspecified chronic kidney disease; N18.30 Chronic kidney disease, stage 3 unspecified; E78.5 Hyperlipidemia, unspecified; J45.909 Unspecified asthma, uncomplicated; Z98.890 Other specified postprocedural states; Z79.899 Other long term (current) drug therapy; Z98.51 Tubal ligation status; Z98.84 Bariatric surgery status; Z96.653 Presence of artificial knee joint, bilateral; Z79.01 Long term (current) use of anticoagulants
CPT/HCPCS: 62110; 62900

== ENCOUNTER → 2021-08-23 | Outpatient (CLI) | payer OTHER, BC | LOC: SJCVC 12:19 | PROVIDERS: ATTEND Internal Medicine Cardiovascular Disease | DX: I48.91 Unspecified atrial fibrillation (principal); I10 Essential (primary) hypertension; G47.33 Obstructive sleep apnea (adult) (pediatric); Z01.810 Encounter for preprocedural cardiovascular examination; Z79.899 Other long term (current) drug therapy; Z98.890 Other specified postprocedural states; Z96.652 Presence of left artificial knee joint; Z88.8 Allergy status to other drugs, medicaments and biological substances ==